=== PATIENT | female | born 1995 | race Caucasian/White ===

== ENCOUNTER 2022-10-22 15:25 | Outpatient (CLI) | payer MEDICAID, SELFPAY ==
[2022-10-22 23:51] LABS: Chlamydia DNA Amplified* NOT DETECTED (No Detected); GC DNA Amplified* NOT DETECTED (No Detected)
== END 2022-10-22 15:26 | disposition home or self-care (01) ==
LOC: FRMREF 15:26
PROVIDERS: PCP Family Medicine; Visit Provider Family Medicine
DX: N92.6 Irregular menstruation, unspecified (principal); N93.0 Postcoital and contact bleeding; Z11.3 Encounter for screening for infections with a predominantly sexual mode of transmission; Z12.4 Encounter for screening for malignant neoplasm of cervix
CPT/HCPCS: 0353U; 87491; 87591

== ENCOUNTER 2022-11-12 07:49 | Outpatient (CLI) | payer MEDICAID, SELFPAY ==
--- NOTE | 2022-11-12 08:00 | CRLHL7_ITS ---
For Patients: As a result of the Century Cures Act, medical imaging exams and procedure reports are released immediately into your electronic medical record. You may view this report before your referring provider. If you have questions, please contact your health care provider. CLINICAL HISTORY: Pelvic pain TECHNIQUE: Real time, skelton scale images were acquired of the pelvis using a transabdominal and transvaginal approach. Color Doppler analysis was performed of the ovaries. FINDINGS: Uterus measures 7.6 x 4.9 x 5.4 centimeters IUD in the endometrium in a satisfactory position. Right ovary measures 3.2 x 1.5 x 2.6 centimeters. Left ovary measures 6 x 2.8 x 5.6 centimeters. 4.7 x 2.8 x 5.5 centimeter left ovarian cyst. Normal blood flow to both ovaries. IMPRESSION: 1. IUD in the endometrial cavity in satisfactory position. 2. 4.7 centimeter x 2.8 x 5.5 centimeters simple left ovarian cyst. Normal blood flow to both ovaries. Follow-up ultrasound 1 year recommended. Dictated by Azul Penn MD @ 11/12/2022 8:46:35 AM (Electronically Signed)
== END 2022-11-12 07:50 | disposition home or self-care (01) ==
PROVIDERS: PCP Family Medicine; Visit Provider Family Medicine
DX: R10.2 Pelvic and perineal pain (principal); N83.202 Unspecified ovarian cyst, left side
CPT/HCPCS: 76830; 93976